=== PATIENT | female | born 1990 | race Caucasian/White ===

== ENCOUNTER 2018-03-12 20:40 | Emergency (ER) | payer BC ==
[~2018-03-12] VITALS: Ht 177.8 cm; Wt 90.9 kg
[2018-03-12 21:00] VITALS: Ht 177.8 cm; Wt 90.9 kg
[2018-03-12] MEDS ORDERED: ABILIFY10 MG PO (21:01)
[2018-03-12] MEDS ORDERED: EFFEXOR100 MG PO (21:01)
[2018-03-12] MEDS ORDERED: ZYRTEC10 MG PO (21:02)
[2018-03-12 21:30] LABS: BASOPHILS 0 % (0-2); EOSINOPHILS 0 % (0-7); HEMATOCRIT 38.2 % (36.0-48.0); HEMOGLOBIN 12.7 g/dL (12-16); IMMATURE GRANULOCYTES 0.3 % (0-5); LYMPHOCYTES 19.3 % (15-50); MCH 29.6 pg (26.0-34.0); MCHC 33.2 g/dL (31.0-37.0); MEAN PLATELET VOLUME 10.6 fL (7.4-10.4); MONOCYTES 10.6 % (2-11); NEUTROPHILS 69.8 % (40-80); PLATELET COUNT 225 10x3/uL (130-400); RBC 4.29 10x6/uL (4.00-5.40); RDW 13.3 % (11.5-14.5); WBC 6.4 10x3/uL (4.8-10.8)
[2018-03-12 21:33] LABS: COLOR AMBER (YELLOW)
[2018-03-12 21:34] LABS: APPEARANCE HAZY (CLEAR); BILIRUBIN NEGATIVE (NEGATIVE); GLUCOSE NEGATIVE (NEGATIVE); KETONE NEGATIVE (NEGATIVE); NITRITE NEGATIVE (NEGATIVE); PROTEIN 1+ mg/dL (NEGATIVE); SPECIFIC GRAVITY 1.015 (1.005-1.020); UROBILINOGEN NORMAL (NORMAL)
[2018-03-12 21:36] LABS: WHITE CELLS - URINE 0-5 /hpf (0-5)
[2018-03-12 21:37] LABS: HCG SERUM NEGATIVE (NEGATIVE)
[2018-03-12 21:44] LABS: BACTERIA FEW /hpf (NONE SEEN)
[2018-03-12 21:46] LABS: HCG URINE NEGATIVE (NEGATIVE)
[2018-03-12 22:21] LABS: ALBUMIN 3.3 g/dL (3.4-5.0); ALKALINE PHOSPHATASE 115 U/L (46-116); ALT (SGPT) 40 U/L (10-68); CALC OSMOLALITY 278 mosm/kg (275-300); CALCIUM 8.9 mg/dL (8.5-10.1); CARBON DIOXIDE 23.8 mmol/L (21.0-32.0); CHLORIDE - SERUM 107 mmol/L (98-107); CREATININE - SERUM 0.8 mg/dL (0.6-1.3); GLUCOSE 99 mg/dL (74-106); HCG - QUANTITATIVE (MATERNAL) 3 mIU/mL; POTASSIUM - SERUM 3.5 mmol/L (3.5-5.1); PROTEIN - SERUM 6.9 g/dL (6.4-8.2); SODIUM 141 mmol/L (136-145); UREA NITROGEN 8 mg/dL (7-18); eGFR NON AFRICAN AMERICAN 89 mL/min (90-120)
[2018-03-12] MEDS ORDERED: ROBAXIN500 MG PO (22:33)
[2018-03-12 22:53] VITALS: BP 142/80
== END 2018-03-12 22:54 | disposition home or self-care (01) ==
LOC: D.ER 20:40
PROVIDERS: Family Medicine
DX: O03.9 Complete or unspecified spontaneous abortion without complication (principal); R10.2 Pelvic and perineal pain

== ENCOUNTER 2018-05-01 05:22 | Emergency (ER) | payer BC ==
[~2018-05-01] VITALS: Ht 177.8 cm; Wt 95.5 kg
[~2018-05-01 05:22] MED LIST: ABILIFY10 MG PO; EFFEXOR100 MG PO; ROBAXIN500 MG PO; ZYRTEC10 MG PO
[2018-05-01 05:28] VITALS: Ht 177.8 cm; Wt 95.5 kg
[2018-05-01] MEDS ORDERED: NORCO 7.5/325 T1 TA1 PO (08:16)
[2018-05-01 08:37] VITALS: BP 132/87
== END 2018-05-01 08:37 | disposition home or self-care (01) ==
LOC: D.ER 05:22
DX: S93.402A Sprain of unspecified ligament of left ankle, initial encounter (principal); W10.9XXA Fall (on) (from) unspecified stairs and steps, initial encounter; Y93.89 Activity, other specified; Y92.019 Unspecified place in single-family (private) house as the place of occurrence of the external cause; S93.602A Unspecified sprain of left foot, initial encounter; F17.200 Nicotine dependence, unspecified, uncomplicated

== ENCOUNTER 2018-07-04 07:20 | Emergency (ER) | payer BC ==
[~2018-07-04] VITALS: Ht 177.8 cm; Wt 99.8 kg
[~2018-07-04 07:20] MED LIST changes: +NORCO 7.5/325 T1 TA1 PO
[2018-07-04 07:30] VITALS: Ht 177.8 cm; Wt 99.8 kg
[2018-07-04 08:00] LABS: COLOR YELLOW (YELLOW)
[2018-07-04 08:01] LABS: APPEARANCE HAZY (CLEAR); BILIRUBIN NEGATIVE (NEGATIVE); GLUCOSE NEGATIVE (NEGATIVE); KETONE MODERATE mg/dL (NEGATIVE); NITRITE NEGATIVE (NEGATIVE); PROTEIN NEGATIVE (NEGATIVE); SPECIFIC GRAVITY 1.025 (1.005-1.020)
[2018-07-04 08:02] LABS: BACTERIA MODERATE /hpf (NONE SEEN); EPITHELIAL CELLS OCC /hpf (0-5); MUCUS <1+ /lpf (NONE SEEN); RED CELLS - URINE OCC /hpf (0-5); WHITE CELLS - URINE 0-5 /hpf (0-5)
[2018-07-04 08:42] LABS: BASOPHILS 0 % (0-2); EOSINOPHILS 0 % (0-7); IMMATURE GRANULOCYTES 0.3 % (0-5); LYMPHOCYTES 7.8 % (15-50); MCH 29.3 pg (26.0-34.0); MCHC 33.3 g/dL (31.0-37.0); MCV 87.8 fL (80.0-100.0); MEAN PLATELET VOLUME 11.6 fL (7.4-10.4); MONOCYTES 6.5 % (2-11); NEUTROPHILS 85.4 % (40-80); PLATELET COUNT 217 10x3/uL (130-400); RDW 13.5 % (11.5-14.5); WBC 7.1 10x3/uL (4.8-10.8)
[2018-07-04 08:53] LABS: ALBUMIN 3.3 g/dL (3.4-5.0); ALKALINE PHOSPHATASE 92 U/L (46-116); ALT (SGPT) 18 U/L (10-68); BILIRUBIN - TOTAL 0.34 mg/dL (0.2-1.3); CALC OSMOLALITY 272 mosm/kg (275-300); CALCIUM 8.6 mg/dL (8.5-10.1); CARBON DIOXIDE 21.1 mmol/L (21.0-32.0); CHLORIDE - SERUM 104 mmol/L (98-107); CREATININE - SERUM 0.6 mg/dL (0.6-1.3); GLUCOSE 96 mg/dL (74-106); POTASSIUM - SERUM 3.3 mmol/L (3.5-5.1); SODIUM 137 mmol/L (136-145); UREA NITROGEN 11 mg/dL (7-18); eGFR NON AFRICAN AMERICAN > 90 mL/min (90-120)
[2018-07-04 09:18] LABS: HCG - QUANTITATIVE (MATERNAL) 62090 mIU/mL
[2018-07-04] MEDS ORDERED: MECLIZINE HCL25 MG PO (09:54)
[2018-07-04] MEDS ORDERED: KEFLEX500 MG PO (09:54)
[2018-07-04] MEDS ORDERED: MACROBID100 MG PO (09:54)
[2018-07-04 10:40] VITALS: BP 109/62
== END 2018-07-04 10:40 | disposition home or self-care (01) ==
LOC: D.ER 07:20
PROVIDERS: Family Medicine
DX: O23.41 Unspecified infection of urinary tract in pregnancy, first trimester (principal); Z3A.01 Less than 8 weeks gestation of pregnancy; O21.0 Mild hyperemesis gravidarum

== ENCOUNTER → 2018-12-16 04:20 | Outpatient (CLI) | payer BC ==
[~2018-12-16 04:20] MED LIST changes: +ABILIFY2 MG PO; +EFFEXOR XR150 MG PO; +EFFEXOR75 MG; +FERROUS SULFAT325 MG PO; +KEFLEX500 MG PO; +MACROBID100 MG PO; +MECLIZINE HCL25 MG PO; +PEPCID AC20 MG PO; +PRENAVITE1 TAB PO
== END | disposition home or self-care (01) ==
LOC: D.LDO 04:20
PROVIDERS: ATTEND Obstetrics & Gynecology
DX: O26.899 Other specified pregnancy related conditions, unspecified trimester (principal)

== ENCOUNTER → 2018-12-19 07:35 | Outpatient (CLI) | payer BC | END | disposition home or self-care (01) | LOC: D.LDO 07:35 | PROVIDERS: ATTEND Obstetrics & Gynecology | DX: O26.893 Other specified pregnancy related conditions, third trimester (principal); Z3A.34 34 weeks gestation of pregnancy; R06.02 Shortness of breath ==

== ENCOUNTER → 2018-12-23 01:21 | Outpatient (CLI) | payer BC | END | disposition home or self-care (01) | LOC: D.LDO 01:21 | PROVIDERS: ATTEND Obstetrics & Gynecology | DX: O26.893 Other specified pregnancy related conditions, third trimester (principal); Z3A.35 35 weeks gestation of pregnancy ==

== ENCOUNTER → 2018-12-27 09:37 | Outpatient (CLI) | payer BC ==
[2018-12-27 11:35] LABS: BASOPHILS 0 % (0-2); EOSINOPHILS 0.1 % (0-7); HEMATOCRIT 27.9 % (36.0-48.0); HEMOGLOBIN 9.3 g/dL (12-16); IMMATURE GRANULOCYTES 0.7 % (0-5); LYMPHOCYTES 17.1 % (15-50); MCH 28.4 pg (26.0-34.0); MCHC 33.3 g/dL (31.0-37.0); MCV 85.3 fL (80.0-100.0); MEAN PLATELET VOLUME 10.6 fL (7.4-10.4); MONOCYTES 9.7 % (2-11); NEUTROPHILS 72.4 % (40-80); RBC 3.27 10x6/uL (4.00-5.40); RDW 14.7 % (11.5-14.5); WBC 6.9 10x3/uL (4.8-10.8)
[2018-12-27 11:37] LABS: PLATELET COUNT 168 10x3/uL (130-400)
[2018-12-27 11:39] LABS: APPEARANCE CLEAR (CLEAR); BILIRUBIN NEGATIVE (NEGATIVE); COLOR YELLOW (YELLOW); GLUCOSE NEGATIVE (NEGATIVE); KETONE NEGATIVE (NEGATIVE); NITRITE NEGATIVE (NEGATIVE); PROTEIN TRACE mg/dL (NEGATIVE); UROBILINOGEN NORMAL (NORMAL)
[2018-12-27 11:43] LABS: BACTERIA FEW /hpf (NONE SEEN); MUCUS <1+ /lpf (NONE SEEN); RED CELLS - URINE NONE SEEN /hpf (0-5)
[2018-12-27 11:44] LABS: CALCIUM OXALATE CRYSTALS 0-5 /hpf (NONE SEEN)
[2018-12-27 11:51] LABS: ALBUMIN 2.4 g/dL (3.4-5.0); ALKALINE PHOSPHATASE 159 U/L (46-116); ALT (SGPT) 17 U/L (10-68); BILIRUBIN - DIRECT 0.05 mg/dL (0.00-0.30); BILIRUBIN - TOTAL 0.25 mg/dL (0.2-1.3); CALC OSMOLALITY 274 mosm/kg (275-300); CALCIUM 8.5 mg/dL (8.5-10.1); CARBON DIOXIDE 23.5 mmol/L (21.0-32.0); CHLORIDE - SERUM 105 mmol/L (98-107); CREATININE - SERUM 0.5 mg/dL (0.6-1.3); GLUCOSE 78 mg/dL (74-106); PROTEIN - SERUM 5.9 g/dL (6.4-8.2); SODIUM 140 mmol/L (136-145); UREA NITROGEN 3 mg/dL (7-18); URIC ACID 4.8 mg/dL (2.6-7.2); eGFR NON AFRICAN AMERICAN > 90 mL/min (90-120)
[2018-12-27 11:52] LABS: POTASSIUM - SERUM 2.7 mmol/L (3.5-5.1)
== END | disposition home or self-care (01) ==
LOC: D.LDO 09:37
PROVIDERS: ATTEND Obstetrics & Gynecology
DX: O36.8130 Decreased fetal movements, third trimester, not applicable or unspecified (principal); Z3A.35 35 weeks gestation of pregnancy

== ENCOUNTER → 2019-01-03 08:30 | Outpatient (CLI) | payer BC ==
[2019-01-03 09:47] LABS: BASOPHILS 0 % (0-2); EOSINOPHILS 0 % (0-7); HEMATOCRIT 28.2 % (36.0-48.0); HEMOGLOBIN 9.5 g/dL (12-16); IMMATURE GRANULOCYTES 0.7 % (0-5); LYMPHOCYTES 13.6 % (15-50); MCH 28.4 pg (26.0-34.0); MCHC 33.7 g/dL (31.0-37.0); MCV 84.2 fL (80.0-100.0); NEUTROPHILS 75.7 % (40-80); PLATELET COUNT 156 10x3/uL (130-400); RBC 3.35 10x6/uL (4.00-5.40); RDW 14.4 % (11.5-14.5); WBC 6.9 10x3/uL (4.8-10.8)
[2019-01-03 10:00] LABS: ALBUMIN 2.4 g/dL (3.4-5.0); ALKALINE PHOSPHATASE 161 U/L (46-116); ALT (SGPT) 19 U/L (10-68); BILIRUBIN - DIRECT 0.09 mg/dL (0.00-0.30); BILIRUBIN - INDIRECT 0.17 mg/dL (0.00-1.00); BILIRUBIN - TOTAL 0.26 mg/dL (0.2-1.3); CALC OSMOLALITY 275 mosm/kg (275-300); CALCIUM 8.7 mg/dL (8.5-10.1); CHLORIDE - SERUM 104 mmol/L (98-107); CREATININE - SERUM 0.6 mg/dL (0.6-1.3); GLUCOSE 83 mg/dL (74-106); SODIUM 140 mmol/L (136-145); UREA NITROGEN 6 mg/dL (7-18); URIC ACID 4.2 mg/dL (2.6-7.2); eGFR NON AFRICAN AMERICAN > 90 mL/min (90-120)
[2019-01-03 10:02] LABS: POTASSIUM - SERUM 2.8 mmol/L (3.5-5.1)
[2019-01-04 09:00] LABS: PROTEIN - URINE 18.2 mg/dL (0.0-11.9)
[2019-01-10 13:01] VITALS: BMI 35.8
== END | disposition home or self-care (01) ==
LOC: D.LDO 08:30
PROVIDERS: ATTEND Obstetrics & Gynecology
DX: O26.893 Other specified pregnancy related conditions, third trimester (principal); Z3A.36 36 weeks gestation of pregnancy

== ENCOUNTER → 2019-01-06 09:27 | Outpatient (CLI) | payer BC ==
[~2019-01-06 09:27] MED LIST changes: +EFFEXOR XR75 MG PO; -EFFEXOR75 MG
[2019-01-10 13:01] VITALS: BMI 35.8
== END | disposition home or self-care (01) ==
LOC: D.LDO 09:27
PROVIDERS: ATTEND Obstetrics & Gynecology
DX: O13.3 Gestational [pregnancy-induced] hypertension without significant proteinuria, third trimester (principal); Z3A.37 37 weeks gestation of pregnancy

== ENCOUNTER 2019-01-07 22:40 | Outpatient (CLI) | payer BC ==
[~2019-01-07 22:40] MED LIST changes: -EFFEXOR XR75 MG PO; +EFFEXOR75 MG
[2019-01-10 13:01] VITALS: BMI 35.8
== END 2019-01-07 23:40 | disposition home or self-care (01) ==
LOC: D.LABREF 22:40 → D.LD 22:41 → D.LABREF 23:40
PROVIDERS: ATTEND Obstetrics & Gynecology
DX: O16.3 Unspecified maternal hypertension, third trimester (principal); Z3A.37 37 weeks gestation of pregnancy

== ENCOUNTER 2019-01-10 09:45 | Inpatient (IN) | payer BC ==
[~2019-01-10] VITALS: Ht 177.8 cm; Wt 112.9 kg
[~2019-01-10 09:45] MED LIST changes: +EFFEXOR XR75 MG PO; -EFFEXOR75 MG
[2019-01-10 10:45] LABS: HEMATOCRIT 27.3 % (36.0-48.0); HEMOGLOBIN 9.1 g/dL (12-16); MCH 27.8 pg (26.0-34.0); MCHC 33.3 g/dL (31.0-37.0); MCV 83.5 fL (80.0-100.0); MEAN PLATELET VOLUME 10.6 fL (7.4-10.4); RBC 3.27 10x6/uL (4.00-5.40); WBC 6.7 10x3/uL (4.8-10.8)
[2019-01-10 11:04] LABS: ALBUMIN 2.3 g/dL (3.4-5.0); ALKALINE PHOSPHATASE 165 U/L (46-116); ALT (SGPT) 17 U/L (10-68); BILIRUBIN - INDIRECT 0.22 mg/dL (0.00-1.00); BILIRUBIN - TOTAL 0.25 mg/dL (0.2-1.3); CALC OSMOLALITY 274 mosm/kg (275-300); CARBON DIOXIDE 23.5 mmol/L (21.0-32.0); CHLORIDE - SERUM 105 mmol/L (98-107); CREATININE - SERUM 0.6 mg/dL (0.6-1.3); GLUCOSE 100 mg/dL (74-106); PROTEIN - SERUM 5.8 g/dL (6.4-8.2); SODIUM 139 mmol/L (136-145); UREA NITROGEN 3 mg/dL (7-18); URIC ACID 4.1 mg/dL (2.6-7.2); eGFR NON AFRICAN AMERICAN > 90 mL/min (90-120)
[2019-01-10 11:07] LABS: BILIRUBIN - DIRECT 0.03 mg/dL (0.00-0.30); POTASSIUM - SERUM 2.8 mmol/L (3.5-5.1)
[2019-01-10 13:01] VITALS: BP 137/81; Ht 177.8 cm; Wt 112.9 kg
[2019-01-11] VITALS (13 sets, daily range): BP systolic 124–150; BP diastolic 63–94
[2019-01-11 07:14] LABS: RAPID PLASMA REAGIN Non Reactive (Non Reactive)
--- NOTE | 2019-01-11 08:45 | NUR ---
received pt from post primary c/s by dr. obrien. pt to room 1274, pt has low transverse incisin, dermabond noted. c/d/i. fundus firm, u/1, small rubra lochia, no clots noted, ice pack placed over gown to incision. scd's on. greco cath in place draining light yellow urine. 500 ml's urine noted in greco bag. pt denies sob, dizziness, or difficulty breathing. pt served large glass of ice water as she also denies nausea. see flow sheet for full documentation of assessment. see emar for all meds adm by this rn. family called to room. sr up x2, call light and phone within reach.
--- NOTE | 2019-01-11 08:48 | OP ---
PATIENT NAME: CELI WALKER MEDICAL RECORD: [id number] :86 LOCATION:[id number] ADMISSION DATE:01/10/19 SURGEON: RUSLAN IBRAHIM MD DATE OF OPERATION: 01/11/2019 PREOPERATIVE DIAGNOSES: 1. Preeclampsia. 2. at 35 and 5. POSTOPERATIVE DIAGNOSES: 1. Preeclampsia. 2. at 35 and 5. PROCEDURE: Primary low transverse section. SURGEON: Ruslan Ibrahim MD WELDING MACHINE OPERATOR ELECTROSLAG: Elham Crisostomo ANESTHESIOLOGIST: Garry Herrera MD ANESTHETIC: Spinal. FINDINGS: Viable female infant, vertex presentation, Apgars are 9 and 9, weight is 3557 grams. Unremarkable uterus, tubes and ovaries. SPECIMEN REMOVED: Placenta. SPECIMEN DISPOSITION: Discarded. ESTIMATED BLOOD LOSS: 700 cc. FLUIDS: 2100 cc of lactated Ringer's. URINE OUTPUT: 400 cc of clear urine. COMPLICATIONS: None. DRAINS: Fitzgerald to gravity. INDICATIONS: The patient is a 29-year-old G1, para 0 with preeclampsia. The patient has been hospitalized for 24 hours before section available to be done. The patient is not complaining of headaches or blurred vision at this time. The pressures are consistently borderline severe. After counseling, the patient has a strong desire for primary section and understands the risk, benefits and limitations of this procedure. The patient understood all risks and wishes to proceed. DESCRIPTION OF PROCEDURE: After informed consent was assured, the patient was taken to the operating room where anesthetic was obtained without difficulty. The patient was now prepped and draped in the usual sterile fashion. After assessment of the anesthetic, an incision was made, carried down to the underlying layer of the fascia, which was opened in the midline and extended laterally. The rectus bellies were dissected free, superiorly and inferiorly. The rectus bellies were now in the midline and the peritoneum was OPERATIVE REPORT [id number] CELI WALKER entered sharply. Peritoneal opening was extended and an Flash O retractor inserted and tightened. The Paris all-purpose retractor was inserted and bladder flap developed. A low transverse hysterotomy was performed. was delivered onto the abdomen with vacuum assist. The cord was noted, it was nuchal and reduced. Cord was doubly clamped and cut and the infant was passed to the attendant. Placenta was delivered via Crede maneuver. The uterus was exteriorized, cleared of all clot and debris. After Pitocin given, the uterus was still boggy and Hemabate was placed directly at both the right and left cornual regions with a tuberculin syringe. Hysterotomy was closed with a running stitch of chromic. Adequate hemostasis was achieved as the uterus was returned to the abdomen. The pelvis was irrigated, irrigant removed. The rectus bellies were reapproximated in the midline with a loose chromic stitch. The fascia was closed with running PDS. The subcutaneous tissue was inspected. Bleeding vessels cauterized and the skin reapproximated with 3-0 Monocryl on a Ismael needle. Sterile dressing applied. Sponge, lap, and needle counts correct times 2. The patient was recovered in the operating room, humidity was in excess of 61% throughout the procedure. TRANSINT:[id number] Voice Confirmation ID: [id number] DOCUMENT ID: [id number] RUSLAN IBRAHIM MD at 0848 CC: [id number] DICTATION DATE: 01/11/19827 PUBLIC SAFETY OFFICER: 01/11/19 0840 ADM IN [facility] [address] [id number]
--- NOTE | 2019-01-11 09:00 | NUR ---
fundus firm, u/2, small rubra lochia, no clots noted. pt denies pain or needs at this time. srup x2, call light and phone within reach.
--- NOTE | 2019-01-11 14:15 | NUR ---
to pt's room, pt is sitting up in the bed. fundus firm, u/1, small rubra lochia, no clots noted. pericare done with warm wet washcloths, peritowels/chux changed. greco cath continues to drain clear yellow urine, 1700 ml's emptied out of greco bag. abdomen palpates soft, no bladder distention palpated. pt instructed on incentive spirometer use, demonstrates well x 2, and coughing and deep breathing exercises done well. pt denies all other needs at this time. plan of care to normalize pt later this evening discussed with pt and pt agrees. sr up x2, call light and phone within reach. family at bedside.
--- NOTE | 2019-01-11 19:15 | NUR ---
REPORT GIVEN TO 7 P SHIFT.
--- NOTE | 2019-01-11 19:30 | NUR ---
PM ROUNDS MADE, PT VISITING WITH FAMILY AND FRIENDS, HOLDING , INFORMED PT THAT I WILL BE BACK SHORTLY TO REMOVE BROWN CATH AND TRANSFER HER TO ROOM 1257, PT VERBALIZES UNDERSTANDING, DENIES NEEDS AT THIS TIME
--- NOTE | 2019-01-11 20:10 | NUR ---
ASSESSMENT PER FLOW SHEET, VS OBTAINED, IF IN LEFT HAND INTACT WITH NO REDNESS OR EDEMA INFUSING NS WITH PITOCIN AT 125 ML/HR, FF, ML, U/1, LITE BLEEDING NOTED WITH NO CLOTS, BIKINI INC WITH DERMABOND CDI WITH NO DRAINAGE NOTED, BROWN CATH REMOVED, TIP INTACT, EMPTIED 600 MLS OF YELLOW URINE, JOSELO CARE DONE WITH WET WARM WASH CLOTHS, PT STATES "I THINK I COULD GO AGAIN", PT UP TO BR WITH ASSISTANCE, GAIT STEADY, PT DID NOT NOT, ASSISTED PT WITH JOSELO PAD AND PANTIES, PT DENIES FLATUS, PT READY TO TRANSFER TO ROOM 1257, FOB TAKES ALL BELONGINGS TO ROOM 1257
--- NOTE | 2019-01-11 20:45 | NUR ---
PT TRANSFERRED VIA WC TO ROOM 1257, PT ORIENTED TO ROOM, INFORMED PT THAT I WILL BE BACK IN A FEW MINUTES TO HANG HER OTHER KCL, PT VERBALIZES UNDERSTANDING, BED IN LOW POSITION, SIDE RAILS X 2, CALL LIGHT IN REACH
--- NOTE | 2019-01-11 20:59 | NUR ---
THIRD BAG OF KCL HUNG PER MD ORDERS, SEE EMAR
--- NOTE | 2019-01-11 21:35 | NUR ---
PT WATCHING TV, DENIES NEEDS AT THIS TIME, FOB AT BEDSIDE
--- NOTE | 2019-01-11 22:21 | NUR ---
ADM TORADOL PO AND HUNG 4TH BAG OF KCL PER MD ORDERS, SEE EMAR, PT DENIES FURTHER NEEDS, BED IN LOW POSITION, SIDE RAILS X 2, CALL LIGHT IN REACH, FOB AT BEDSIDE
--- NOTE | 2019-01-12 00:04 | NUR ---
PT BORDER MEASURER LIGHT, C/O PAIN, ADM PERCOCET PER MD ORDERS, PT REPORTS VOIDING, EMPTIED 500 MLS OF LIGHTLY BLOOD TINGED URINE FROM UTAH HAT, PT DENIES FURTHER NEEDS, FOB AT BEDSIDE
[2019-01-12 00:37] VITALS: BP 151/83
--- NOTE | 2019-01-12 01:00 | NUR ---
PT SALESPERSON PETS AND PET SUPPLIES LIGHT, IV BEEPING, IV CONVERTED SL, FLUSHED WITH 10 MLS NS WITH NO DIFFICULTY, RATES PAIN 1-2. PLACED BABY IN OPEN CRIB. PT DENIES FURTHER NEEDS AT THIS TIME. FOB AT THE BEDSIDE. BED LOW, CALL LIGHT IN REACH, RAILS UP X 2.
--- NOTE | 2019-01-12 02:25 | NUR ---
PT RESTING WITH EYES CLOSED, RESP QUIET, NO DISTRESS NOTED, LEFT UNDISTURBED AT THIS TIME, IN OPEN CRIB CART AT BEDSIDE, FOB ASLEEP ON COUCH
--- NOTE | 2019-01-12 04:44 | NUR ---
PT RESTING IN BED, BABY IN OPEN CRIB AT BEDSIDE. VITALS TAKEN. PT REPORTS PAIN 3/, ADMINISTERED TORADOL PER DRS ORDERS. EMPTIED 600ML OF LIGHTLY BLOOD TINGED URINE OUT OF TOILET CAP. PT DENIES ANY FURTHER NEEDS AT THIS TIME.
[2019-01-12 04:48] VITALS: BP 132/82
--- NOTE | 2019-01-12 05:36 | NUR ---
PT RESTING WITH EYES CLOSED, RESP QUIET, NO DISTRESS NOTED, LEFT UNDISTURBED AT THIS TIME, IN OPEN CRIB CART AND FOB ASLEEP ON COUCH
--- NOTE | 2019-01-12 06:05 | NUR ---
PT AWAKE, INFANT TO NSY FOR BS CHECK, BACK TO ROOM, BANDS CHECKED, PT C/O PAIN, ADM PAIN MED PER MD ORDERS, SEE EMAR, PT DENIES FURTHER NEEDS
--- NOTE | 2019-01-12 08:20 | NUR ---
PT CALLS OUT PAINT ROLLER ASSEMBLER LIGHT AND STATES "WHEN I GOT UP TO THE BATHROOM, PART OF MY IV FELL OFF". TO PT'S ROOM, 3 WAY PORT OFF OF SL NOTED TO BE ON THE FLOOR. NO ACTIVE BLEEDING NOTED FROM IV SITE, IV CATH REMAINS INTACT TO LEFT HAND. IV CATH DC'D INTACT. PT TOBI WELL. PT HAS VOIDED 200 ML'S LIGHT YELLOW URINE.
--- NOTE | 2019-01-12 08:30 | NUR ---
TO ROOM FOR AM ASSESMENT, PT IS SITTING UP ON THE SIDE OF THE BED. PT REQUESTS TO TAKE A SHOWER, CLEAN LINENS PROVIDED, ALONG WITH PERIPANTIES/PADS, AND BODY WASH. BED LINENS CHANGED. FRESH ICE PACK PROVIDED. LARGE FRESH ICE WATER SERVED. PT DENIES SOB, NAUSEA, DIZZINESS, OR DIFFICULTY BREATHING. PT DENIES HEAVY BLEEDING OR PASSING CLOTS. REGULAR BREAKFAST TRAY IS ON BEDSIDE TABLE. PT DENIES ALL OTHER NEEDS. SR UP X2, CALL LIGHT AND PHONE WITHIN REACH.
--- NOTE | 2019-01-12 08:45 | NUR ---
BIKINI LINE INCISION NOTED TO HAVE DERMABOND, C/D/I, NO BRUISING OR REDNESS NOTED TO INCISIONAL AREA. UP TO SHOWER, CALL LIGHT WITHIN REACH. PT DENIES ALL NEEDS.
[2019-01-12 08:47] VITALS: BP 141/81
--- NOTE | 2019-01-12 09:15 | NUR ---
DR. IBRAHIM ON UNIT, TO ROOM FOR AM ROUNDS.
--- NOTE | 2019-01-12 12:10 | NUR ---
pt calls out framing consultant light and requests pain medication, but states she does not want both of them together. states she wants to take toradol now, and wants to take the percocet later. ice water served, fresh ice pack provided to pt. pt denies all other needs. srup x2, call light and phone within reach.
[2019-01-12 12:30] VITALS: BP 132/77
--- NOTE | 2019-01-12 14:22 | NUR ---
REQUESTING PAIN MEDICATION- RATES PAIN A 6 ON SCALE OF 0-10. STATES PAIN IS AT INCISION AREA.
--- NOTE | 2019-01-12 15:08 | NUR ---
SITTING UP IN BED TALKING WITH VISITOR. IN ARMS. NO REQUESTS.
[2019-01-12 16:13] VITALS: BP 140/82
--- NOTE | 2019-01-12 16:14 | NUR ---
SITTING UP IN BED HOLDING . DENIES NEEDS.
--- NOTE | 2019-01-12 17:56 | NUR ---
ASLEEP WHEN ENTERED ROOM. ASK ABOUT PAIN- STATES ABOUT 4 ON SCALE OF 0-10. DENIES NEEDS.
--- NOTE | 2019-01-12 19:12 | NUR ---
PT VISITING WITH CO-WORKER, CO-WORKER HOLDING , INFORMED PT THAT I WILL BE BACK SHORTLY TO DO ASSESSMENT, PT REPORTS ONLY HAVE PAIN WITH MOVEMENT WHEN GETTING UP, REQUESTS PAIN MED AND JOSELO PADS, INFORMED PT THAT I WILL BRING THOSE WITH ME WHEN I RETURN, PT VERBALIZES UNDERSTANDING, DENIES FURTHER NEEDS
[2019-01-12 20:25] VITALS: BP 138/88
--- NOTE | 2019-01-12 20:25 | NUR ---
ASSESSMENT PER FLOW SHEET, VS OBTAINED, FF, ML, U/2, PT REPORTS LITE BLEEDING WITH 1 STRINGY CLOT EARLIER TODAY, BIKINI INC WITH DB AND STERI STRIPS CDI WITH NO DRAINAGE NOTED, JOSELO PAD OVER INC FOR COMFORT AND MOISTURE CONTROL, PT INST ON AND VERBALIZES UNDERSTANDING OF INCISIONAL CARE, ADM PAIN MED PER MD ORDERS FOR PAIN CONTROL, SEE EMAR, PT DENIES FURTHER NEEDS AT THIS TIME, BED IN LOW POSITION, SIDE RAILS X 2, CALL LIGHT IN REACH, TO PT'S ARMS, FOB AT BEDSIDE
--- NOTE | 2019-01-12 21:20 | NUR ---
PT SITTING UP ON SIDE OF BED, RATES PAIN 1-2/10, REQUESTED AND SERVED FRESH H20, INFANT IN OPEN CRIB CART AND FOB AT BEDSIDE, DENIES FURTHER NEEDS, TRASH REMOVED
--- NOTE | 2019-01-12 22:32 | NUR ---
PT GETTING UP TO BR, GAIT STEADY, INFORMED PT THAT I WILL BRING HER TORADOL AT MIDNIGHT, PT VERBALIZES UNDERSTANDING, DENIES NEEDS AT THIS TIME, IN OPEN CRIB CART
--- NOTE | 2019-01-13 00:27 | NUR ---
PT AWAKE, HOLDING INFANT, ADM TORADOL AND PERCOCET PER MD ORDERS, SEE EMAR, PT DENIES FURTHER NEEDS, FOB ASLEEP ON COUCH
--- NOTE | 2019-01-13 02:22 | NUR ---
PT AWAKE, HOLDING INFANT, DENIES NEEDS AT THIS TIME, INFORMED PT THAT I WILL COME BACK IN AROUND 4:30 TO OBTAIN VS AND BRING PAIN MED AT THAT TIME, PT STATES "THAT SOUNDS GOOD"
[2019-01-13 04:29] VITALS: BP 121/64
--- NOTE | 2019-01-13 04:29 | NUR ---
PT AROUSES TO OPENING OF DOOR, VS OBTAINED, ADM PERCOCET PER MD ORDERS, SEE EMAR, WITH FRESH H20, PT DENIES FURTHER NEEDS, IN OPEN CRIB CART AND FOB ASLEEP ON COUCH
--- NOTE | 2019-01-13 06:23 | NUR ---
DR IBRAHIM TO ROOM
--- NOTE | 2019-01-13 06:41 | NUR ---
PT AWAKE, INFANT IN OPEN CRIB CART, ADM TORADOL PER MD ORDERS, SEE EMAR, PT DENIES FURTHER NEEDS
--- NOTE | 2019-01-13 07:00 | NUR ---
SHIFT REPORT TO JESSICA MORRIS RN
--- NOTE | 2019-01-13 07:15 | NUR ---
UP AND ABOUT IN ROOM. INTO BED FOR VS AND ASSESSMENT. ALERT- VERBAL RESPONSES APPRO TO QUESTIONS. STATES TIRED AND DID NOT SLEEP MUCH LAST NIGHT- STATES BABY WAS AWAKE. ABD INCISION APPEARANCE WNL- DERMABOND. ICE WATER GIVEN. DENIES OTHER NEEDS.
[2019-01-13 07:28] VITALS: BP 140/88
--- NOTE | 2019-01-13 09:03 | NUR ---
RINGS CALL LIGHT- REQUESTING PAIN MEDICATION. STATES PAIN IS AT INCISION AREA- RATING PAIN A 6 ON SCALE OF 0-10.
[2019-01-13 09:10] VITALS: BP 120/72
[2019-01-13] MEDS ORDERED: IBUPROFEN800 MG PO (10:07)
[2019-01-13] MEDS ORDERED: PERCOCET 7.5/321 TAB PO (10:07)
--- NOTE | 2019-01-13 11:04 | NUR ---
DISCHARGE INST VERBAL AND WRITTEN GIVEN. PRESCRIPTIONS GIVEN X 2 WITH PT MED REC AND DRUG DATA INFO SHEETS. PFW DISCHARGE INST GIVEN. AWHONN EMERGENCY SHEET GIVEN. SEE PT SIGN SHEET FOR OTHER DISCHARGE INST. PT HEALTH SUMMARY GIVEN. DENIES QUESTIONS AT THIS TIME. PT STATES SHE IS READY FOR DISCHARGE ONCE BABY IS DISCHARGED.
--- NOTE | 2019-01-13 12:39 | NUR ---
AMBULATORY TO DESK. REQUESTING PAIN MEDICATION BEFORE DISCHARGE.RATES PAIN A 6 ON SCALE OF 0-10. PAIN AT INCISION AREA.
--- NOTE | 2019-01-13 14:00 | NUR ---
PT STATES SHE IS READY FOR DISCHARGE. FAMILY AT SIDE. DISCHARGED HOME WITH . TO AUTO VIA W/C.
== END 2019-01-13 14:00 | disposition home or self-care (01) | DRG 788 ==
LOC: D.LD 09:45
PROVIDERS: ADMIT Obstetrics & Gynecology; ATTEND Obstetrics & Gynecology
PROC: 10D00Z1 Extraction of Products of Conception, Low, Open Approach (ICD-10-PCS; principal; 2019-01-11)
DX: O14.94 Unspecified pre-eclampsia, complicating childbirth (principal); Z3A.37 37 weeks gestation of pregnancy; Z37.0 Single live birth

== ENCOUNTER 2019-01-15 21:47 | Inpatient (IN) | payer BC ==
[~2019-01-15] VITALS: Ht 177.8 cm; Wt 101.4 kg
[~2019-01-15 21:47] MED LIST changes: +IBUPROFEN800 MG PO; +PERCOCET 7.5/321 TAB PO
[2019-01-15 22:00] VITALS: BP 166/109
[2019-01-15 22:15] VITALS: BP 162/95
[2019-01-15 22:30] VITALS: BP 146/104
[2019-01-15 22:45] LABS: BASOPHILS 0.1 % (0-2); EOSINOPHILS 0.1 % (0-7); HEMATOCRIT 26.3 % (36.0-48.0); HEMOGLOBIN 8.6 g/dL (12-16); IMMATURE GRANULOCYTES 0.8 % (0-5); LYMPHOCYTES 17.8 % (15-50); MCH 27.5 pg (26.0-34.0); MCHC 32.7 g/dL (31.0-37.0); MEAN PLATELET VOLUME 10.4 fL (7.4-10.4); MONOCYTES 8.8 % (2-11); NEUTROPHILS 72.4 % (40-80); RBC 3.13 10x6/uL (4.00-5.40); RDW 14.3 % (11.5-14.5); WBC 7.1 10x3/uL (4.8-10.8)
[2019-01-15 22:49] LABS: INR 1.03 (0.85-1.17); PLATELET COUNT 256 10x3/uL (130-400)
[2019-01-15 22:50] LABS: APTT 31.4 SECONDS (22.8-39.4)
[2019-01-15 23:00] VITALS: BP 152/109
[2019-01-15 23:15] LABS: ALBUMIN 2.2 g/dL (3.4-5.0); ALKALINE PHOSPHATASE 127 U/L (46-116); ALT (SGPT) 23 U/L (10-68); BILIRUBIN - TOTAL 0.21 mg/dL (0.2-1.3); CALC OSMOLALITY 277 mosm/kg (275-300); CALCIUM 8.3 mg/dL (8.5-10.1); CARBON DIOXIDE 23.3 mmol/L (21.0-32.0); CHLORIDE - SERUM 107 mmol/L (98-107); CKMB 1.8 U/L (0.0-3.6); CREATINE KINASE 103 UL (21-215); CREATININE - SERUM 0.7 mg/dL (0.6-1.3); GLUCOSE 101 mg/dL (74-106); PRO BNP 4108 pg/mL (0-125); PROTEIN - SERUM 5.9 g/dL (6.4-8.2); SODIUM 140 mmol/L (136-145); UREA NITROGEN 10 mg/dL (7-18); eGFR NON AFRICAN AMERICAN > 90 mL/min (90-120)
[2019-01-15 23:17] LABS: POTASSIUM - SERUM 2.8 mmol/L (3.5-5.1)
--- NOTE | 2019-01-16 00:05 | NUR ---
URINE TO THE LAB.
[2019-01-16 00:23] LABS: APPEARANCE CLEAR (CLEAR); BILIRUBIN NEGATIVE (NEGATIVE); COLOR YELLOW (YELLOW); GLUCOSE NEGATIVE (NEGATIVE); KETONE NEGATIVE (NEGATIVE); NITRITE NEGATIVE (NEGATIVE); PROTEIN 1+ mg/dL (NEGATIVE); UROBILINOGEN NORMAL (NORMAL)
[2019-01-16 00:25] LABS: BACTERIA FEW /hpf (NONE SEEN); EPITHELIAL CELLS 0-5 /hpf (0-5); RED CELLS - URINE 0-5 /hpf (0-5); WHITE CELLS - URINE 0-5 /hpf (0-5)
[2019-01-16 02:53] VITALS: BP 152/94; BMI 34.1
--- NOTE | 2019-01-16 03:02 | NUR ---
RECIEVED REPORT FROM MANUEL SANTILLAN IN ER. BROUGHT TO THE FLOOR ON STRETCHER. TRANSFERED SELF TO BED. ALERT AND ORIENTED X4. UP AD ELSY TO B/R. GENERALIZED EDEMA TO UPPER EXTREMITIES AND PITTING EDEMA TO LOWER EXTREMITIES. TELEMETRY IN PLACE AND RATE 125 SINUS TACH.. LUNG SOUNDS CRACKLES BILATERALLY. O2@4 LITERS PER N/C. IV TO LEFT FA SL AT THIS TIME. ABSX4. STATES HAS'NT HAD A BM SINCE LAST WEDNESDAY. HAD ON WEDNESDAY LAST WEEK. DENIES ANY NEEDS AT THIS TIME.
--- NOTE | 2019-01-16 07:50 | NUR ---
PT AWAKE AND ORIENTED, LYING IN BED. PT STATES NO DISCOMFORT/PAIN AT THIS TIME. NO QUESTIONS, CONCERNS, COMMENTS VOICED. SYLVAIN LOCKED I/V POST ANTIBIOTIC COMPLETION. CL IN REACH, SRX2.
[2019-01-16 08:03] VITALS: BP 143/90
[2019-01-16 11:41] VITALS: BP 158/85
[2019-01-16 12:43] VITALS: BMI 34.0
[2019-01-16 13:08] VITALS: Ht 177.8 cm; Wt 101.4 kg
[2019-01-16 13:45] LABS: HEMATOCRIT 25.2 % (36.0-48.0); HEMOGLOBIN 8.3 g/dL (12-16); MCH 27.8 pg (26.0-34.0); MCHC 32.9 g/dL (31.0-37.0); MCV 84.3 fL (80.0-100.0); MEAN PLATELET VOLUME 10.1 fL (7.4-10.4); PLATELET COUNT 246 10x3/uL (130-400); RBC 2.99 10x6/uL (4.00-5.40); RDW 14.2 % (11.5-14.5); WBC 8.8 10x3/uL (4.8-10.8)
[2019-01-16 14:01] LABS: BASOPHILS 0 % (0-2); EOSINOPHILS 0 % (0-7); IMMATURE GRANULOCYTES 1.7 % (0-5); LYMPHOCYTES 6.5 % (15-50); MONOCYTES 2.6 % (2-11); NEUTROPHILS 89.2 % (40-80)
[2019-01-16 14:18] LABS: % SATURATION 7 % (15-55); IRON 31 ug/dl (35-150); TOTAL IRON BIND CAPACITY 395 ug/dl (260-445); UNSAT IRON BIND CAPACITY 364 ug/dl (150-375)
[2019-01-16 14:46] LABS: CALC OSMOLALITY 284 mosm/kg (275-300); CALCIUM 8.3 mg/dL (8.5-10.1); CARBON DIOXIDE 26.3 mmol/L (21.0-32.0); CHLORIDE - SERUM 105 mmol/L (98-107); CREATININE - SERUM 0.8 mg/dL (0.6-1.3); FERRITIN 29 ng/mL (3-244); MAGNESIUM - SERUM 1.6 mg/dL (1.8-2.4); POTASSIUM - SERUM 3.1 mmol/L (3.5-5.1); SODIUM 142 mmol/L (136-145); THYROID STIMULATING HORMONE 0.27 uIU/mL (0.36-3.74); UREA NITROGEN 10 mg/dL (7-18); eGFR NON AFRICAN AMERICAN 89 mL/min (90-120)
[2019-01-16 14:47] LABS: GLUCOSE 158 mg/dL (74-106)
[2019-01-16 15:36] VITALS: BP 144/83
--- NOTE | 2019-01-16 17:37 | NUR ---
PT HAD HIT CL FOR HELP. I WAS BUSY IN ANOTHER ROOM, TECH ANSWERED AND SAID PTS IV WAS COMPLETE. IV WAS STILL RUNNING BACK UP SO I FINISHED WITH MY OTHER PT. WHEN I WAS DONE, PT HIT CL AGAIN, I WENT IN TTHERE BUT THE ANIMAL ASSISTED THERAPIST WAS IN AND SAID IT WAS JUST THE IV, WHICH SHE TURNED OFF. I UNHOOKED AND ORANGE CAPPED THE PT, AND LEFT THE ROOM SO THE ANIMAL ASSISTED THERAPIST COULD CONTINUE TO DISCUSS THE PTS CONDITION. PT DID NOT REQUEST PAIN MEDICATION. I WAS APPROACHED BY ICU TRANSMISSION AND PROTECTION ENGINEER DAVIS AND TOLD THE PT NEEDED PAIN MEDICATION. I INFORMED HER I WOULD GET SOME SHORLTY, THAT THE PT HAD NOT ASKED FOR ANY THE PREVIOUS TIME I WAS IN HER ROOM. BROUGHT PT HER PAIN MEDICATION WITHIN 10 MINUTES, AFTER COLLECTING THE REST OF THE PTS MEDICATIONS. PT STATED SHE HAS NO FURTHER NEEDS AT THIS TIME AND THAT SHE HAD SIMPLY FORGOTTEN TO ASK ABOUT PAIN MEDICATION WHILE THE ANIMAL ASSISTED THERAPIST WAS IN THE ROOM. CL IN REACH, SRX2. NO COMPLAINTS/CONCERNS/QUESTIONS/COMMENTS.
--- NOTE | 2019-01-16 19:39 | NUR ---
BED UPRIGHT IN BED UPON ENTERING, INFANT IN LAP. DENIES ANY NEEDS AT THIS TIME. BED IN LOWEST POSITION, BED RAILS X2, CALL LIGHT WITHIN REACH. WILL CONTINUE TO MONITOR.
--- NOTE | 2019-01-16 19:55 | NUR ---
PT ANTIBIOTICS FINISHED INFUSING. FLUSHED PT IV, FLUSHES PROPERLY, SALINE LOCKED, SWAB CAP PLACED. PT DENIES ANY NEEDS AT THIS TIME. WILL CONTINUE TO MONITOR.
[2019-01-16 20:00] VITALS: BP 145/85
--- NOTE | 2019-01-16 21:29 | NUR ---
ADMINISTERED PT MEDICATION AT THIS TIME. NO TROUBLE SWALLOWING. PT INQUIRED ABOUT WHEN SHE LAST RECIEVED NORCO, INFORMED HER IT WAS AT 1654. BABY IN BED WITH MOTHER, FAMILY AT BEDSIDE. DENIES OTHER NEEDS AT THIS TIME. BED IN LOWEST POSITION, BED RAILS X2, CALL LIGHT WITHIN REACH. WILL CONTINUE TO MONITOR.
[2019-01-17] VITALS: BP 148/95
--- NOTE | 2019-01-17 00:15 | NUR ---
PT RESTING LATERAL IN BED, BABY IN BED WIHT PATIENT. PT DENIES ANY NEEDS AT THIS TIME. NO S/S OF DISTRESS. BED IN LOWEST POSITION, BED RAILS X1, CALL LIGHT WITHIN REACH. WILL CONTINUE TO MONITOR.
--- NOTE | 2019-01-17 00:48 | NUR ---
I have reviewed this patient and I concur with the Shift Assessment completed by the Licensed Practical Nurse today this shift.
--- NOTE | 2019-01-17 02:47 | NUR ---
FLUSHED PT IV, ADMINISTERED LASIX, FLUSHED IV AND HUNG ZOSYN. PT TOLERATED PROCEDURE WELL. DENIES OTHER NEEDS AT THIS TIME. BED IN LOWEST POSITION, BED RAILS X1, CALL LIGHT WITH IN REACH. WILL CONTINUE TO MONITOR.
[2019-01-17 04:00] VITALS: BP 124/68
[2019-01-17 05:12] LABS: BASOPHILS 0 % (0-2); EOSINOPHILS 0 % (0-7); HEMATOCRIT 24.9 % (36.0-48.0); HEMOGLOBIN 8.2 g/dL (12-16); IMMATURE GRANULOCYTES 1.8 % (0-5); LYMPHOCYTES 14.3 % (15-50); MCH 28.1 pg (26.0-34.0); MCHC 32.9 g/dL (31.0-37.0); MCV 85.3 fL (80.0-100.0); MEAN PLATELET VOLUME 10.5 fL (7.4-10.4); MONOCYTES 11.3 % (2-11); NEUTROPHILS 72.6 % (40-80); PLATELET COUNT 252 10x3/uL (130-400); RBC 2.92 10x6/uL (4.00-5.40); RDW 14.3 % (11.5-14.5); WBC 9.2 10x3/uL (4.8-10.8)
[2019-01-17 05:30] LABS: CARBON DIOXIDE 27.8 mmol/L (21.0-32.0); CHLORIDE - SERUM 105 mmol/L (98-107); CREATININE - SERUM 0.7 mg/dL (0.6-1.3); SODIUM 143 mmol/L (136-145); eGFR NON AFRICAN AMERICAN > 90 mL/min (90-120)
[2019-01-17 05:34] LABS: CALC OSMOLALITY 285 mosm/kg (275-300); GLUCOSE 95 mg/dL (74-106); UREA NITROGEN 15 mg/dL (7-18)
[2019-01-17 05:36] LABS: POTASSIUM - SERUM 2.8 mmol/L (3.5-5.1)
--- NOTE | 2019-01-17 05:54 | NUR ---
PT RESTING SUPINE IN BED UPON ENTERING. 20 MEQ OF POTASSIUM GIVEN AT THIS TIME FOR CRITICAL VALUE OF 2.8. PROTOCOL IS 20 MEQ PO Q2H X3, RECHECK LABS IN 4 HOURS, WHICH IS AT 0935 ON JANUARY 17, 2019. NO TROUBLE SWALLOWNIG MEDICATION. DENIES OTHER NEEDS AT THIS TIME. BABY IN BED WITH PT, FAMILY AT BEDSIDE. BED IN LOWEST POSITION, BED RAILS X1, CALL LIGHT WITHIN REACH. WILL CONTINUE TO MONITOR.
[2019-01-17 08:13] VITALS: BP 139/91
--- NOTE | 2019-01-17 09:24 | NUR ---
DECLINED OFFER OF SCDS. STATES SHE IS GETTING UP TO BATHROOM OFTEN AND IS PROBLEMATIC FOR HER.
[2019-01-17 13:30] LABS: APPEARANCE HAZY (CLEAR); BILIRUBIN NEGATIVE (NEGATIVE); COLOR YELLOW (YELLOW); GLUCOSE NEGATIVE (NEGATIVE); KETONE NEGATIVE (NEGATIVE); NITRITE NEGATIVE (NEGATIVE); PROTEIN NEGATIVE (NEGATIVE); SPECIFIC GRAVITY 1.015 (1.005-1.020); UROBILINOGEN NORMAL (NORMAL)
[2019-01-17 13:33] LABS: BACTERIA MODERATE /hpf (NONE SEEN); EPITHELIAL CELLS 0-5 /hpf (0-5); MUCUS <1+ /lpf (NONE SEEN); WHITE CELLS - URINE 0-5 /hpf (0-5)
--- NOTE | 2019-01-17 14:14 | NUR ---
I have reviewed this patient and I concur with the Shift Assessment completed by the Licensed Practical Nurse today this shift.
[2019-01-17 16:05] VITALS: BP 147/97
--- NOTE | 2019-01-17 19:24 | NUR ---
PT RESTING SUPINE IN BED UPON ENTERING. PT IS ALERT AND ORIENTED X4. FAMILY AT BEDISDE HOLDING BABY. DENIES ANY NEEDS AT THIS TIME. BED IN LOWEST POSITION, BED RAILS X2, CALL LIGHT WITHIN REACH. WILL CONTINUE TO MONITOR.
[2019-01-17 20:00] VITALS: BP 144/95
--- NOTE | 2019-01-17 22:01 | NUR ---
PT RESTING SUPINE IN BED UPON ENTERING, BABY RESTING IN BED WITH PT. ADMINISTERED EVENING MEDICATION AT THIS TIME, NO TROUBLE SWALLOWING. ALSO ADMINISTERED 20 MEQ OF KDUR PER PROTOCOL FOR POTASSIUM OF 2.8. PT REQUESTED MESH PANTIES, PROVIDED PROMPTLY. DENIES OTHER NEEDS AT THIS TIME. FAMILY AT BEDSIDE. BED IN LOWEST POSITION, BED RAILS X2, CALL LIGHT WITHIN REACH. WILL CONTINUE TO MONITOR.
--- NOTE | 2019-01-17 23:02 | NUR ---
ADMINISTERED DOSE 3/3 OF PROTOCOL 20 MEW KDUR FOR POTASSIUM OF 2.8. PT HAD NO TROUBLE SWALLOWING. COMPLAINT OF HOT ROOM, PT ALREADY HAVE AIR CONDITION TURNED DOWN AND HAS PERSONAL UNIT FAN IN ROOM. PT DIDN'T REQUEST ANY ADDITIONAL INTERVENTIONS. BABY IN BED WITH PT, FAMILY AT BEDSIDE. BED IN LOWEST POSITION, BED RAILS X2, CALL LIGHT WITHIN REACH. WILL CONTINUE TO MONITOR.
--- NOTE | 2019-01-17 23:30 | NUR ---
PT RESTING IN BED WITH BABY IN BED UPON ENTERING. ASSESSED PT AT THIS TIME. NO COMPLAINT FROM PT. INCISION IS CLEAN, DRY, INTACT AND IS NOT CAUSING PT A LOT OF PAIN. DENIES ANY NEEDS AT THIS TIME. BED IN LOWEST POSITION, BED RAILS X2, CALL LIGHT WITHIN REACH. WILL CONTINUE TO MONITOR.
[2019-01-18] VITALS (8 sets, daily range): BP systolic 133–155; BP diastolic 76–109
--- NOTE | 2019-01-18 01:33 | NUR ---
PT HIT CL, ANSWERED PROMPTLY. PT COMPLAINT OF NOT BEING ABLE TO CATCH HER BREATH. LAST O2 READING WAS 95% ON 1 L. PT HAS HAD NO TROUBLE BREATHING THIS SHIFT UNTIL NOW. UPPED O2 TO 2.5 L. PT REQUESTED BREATING TREATMENT. RT CONTACTED AND IS ADMINISTERING BREATING TREATMENT. WILL CONTINUE TO MONITOR AND RECHECK PT AFTER TREATMENT.
--- NOTE | 2019-01-18 01:42 | NUR ---
REASSESSED PT AFTER BREATHING TREATMENT. PT REPORTS FEELING BETTER AND IS HAVING AN EASIER TIME BREATHING. DENIES ANY NEEDS AT THIS TIME. BED IN LOWEST POSITION, BED RAILS X2, CALL LIGHT WITHIN REACH. BABY IN BED WITH PT, FAMILY AT BED SIDE. WILL CONTINUE TO MONITOR.
--- NOTE | 2019-01-18 02:40 | NUR ---
I have reviewed this patient and I concur with the Shift Assessment completed by the Licensed Practical Nurse today this shift.
--- NOTE | 2019-01-18 03:40 | NUR ---
PT RESTING IN BED, BABY IN BED WITH PT. PT DENIES ANY NEEDS AT THIS TIME. SHORTNESS OF BREATH EPISODE HAS PASSED AND PT HAS NO NEEDS AT THIS TIME. BED IN LOWEST POSITION, BED RAILS X2, CALL LIGHT WITHIN REACH. FAMILY AT BEDSIDE. WILL CONTINUE TO MONITOR.
--- NOTE | 2019-01-18 04:17 | NUR ---
PT HIT CL AND HAS COMPLAINT OF SHORTNESS OF BREATH. UPPED O2 TO 3.5L VIA NASAL CANNULA. PT REQUESTED BREATHING TREATMENT. RT NOTIFIED. WILL REASSESS PT AFTER BREATING TREATMENT.
--- NOTE | 2019-01-18 05:03 | NUR ---
PT STATES TO BE FEELING BETTER AFTER BREATHING TREATMENT. STATES THAT IT HELPS TO SIT UP. DENIES ANY NEEDS AT THIS TIME. WILL CONTINUE TO MONITOR.
[2019-01-18 05:31] LABS: BASOPHILS 0.1 % (0-2); EOSINOPHILS 0.1 % (0-7); HEMATOCRIT 29.3 % (36.0-48.0); HEMOGLOBIN 9.5 g/dL (12-16); LYMPHOCYTES 13.4 % (15-50); MCH 27.9 pg (26.0-34.0); MCHC 32.4 g/dL (31.0-37.0); MCV 85.9 fL (80.0-100.0); MEAN PLATELET VOLUME 10.4 fL (7.4-10.4); MONOCYTES 9.4 % (2-11); PLATELET COUNT 284 10x3/uL (130-400); RBC 3.41 10x6/uL (4.00-5.40); RDW 14.5 % (11.5-14.5); WBC 10.5 10x3/uL (4.8-10.8)
[2019-01-18 05:44] LABS: CALC OSMOLALITY 284 mosm/kg (275-300); CALCIUM 8.4 mg/dL (8.5-10.1); CARBON DIOXIDE 26.6 mmol/L (21.0-32.0); CHLORIDE - SERUM 105 mmol/L (98-107); CREATININE - SERUM 0.7 mg/dL (0.6-1.3); GLUCOSE 90 mg/dL (74-106); SODIUM 142 mmol/L (136-145); UREA NITROGEN 18 mg/dL (7-18); eGFR NON AFRICAN AMERICAN > 90 mL/min (90-120)
[2019-01-18 05:51] LABS: POTASSIUM - SERUM 2.9 mmol/L (3.5-5.1)
--- NOTE | 2019-01-18 06:13 | NUR ---
PT RESTING SEMI FOWLERS IN BED, BREATHING IS HEAVY BUT APPEARS UNLABORED. BED IN LOWEST POSITION, BED RAILS X2, CALL LIGHT WITHIN REACH. WILL CONTINUE TO MONITOR.
--- NOTE | 2019-01-18 13:48 | MORECARE ---
CASE MANAGEMENT DISCHARGE SUMMARY PATIENT: CELI WALKER UNIT: [id number] ADM DATE: 01/16/19 AGE: 29 : 88 SEX: F ROOM/BED: D.2112 AUTHOR: UBALDO EVANS PHYSICIAN: REFERRING PHYSICIAN: DICK TORRES MD DATE OF SERVICE: 01/18/19 Discharge Plan Patient Name: CELI WALKER [facility] [facility] 1990 Planned Disposition: Inpatient Rehab Facility Anticipated Discharge Date: Discharge Date: Expected LOS: Initial Reviewer: [email or web address] Initial Review Date: 01/18/2019 Generated: 01/18/19 2:48 pm Patient Name: CELI WALKER Page [phone] at 1348 All edits/amendments must be made on the electronic document DICTATION DATE: 01/18/19 1348 PECAN HULLER: SALLIE 01/18/19 1348 RPT#: [id number] DC DATE: STATUS: ADM IN [facility] [address] [place] [address] END OF REPORT
--- NOTE | 2019-01-18 13:57 | MORECARE ---
CASE MANAGEMENT DISCHARGE SUMMARY PATIENT: CELI WALKER UNIT: [id number] ADM DATE: 01/16/19 AGE: 29 : 86 SEX: F ROOM/BED: D.2112 AUTHOR: UBALDO EVANS PHYSICIAN: REFERRING PHYSICIAN: DICK TORRES MD DATE OF SERVICE: 01/18/19 Discharge Plan Patient Name: CELI WALKER [facility] [facility] 1990 Planned Disposition: Inpatient Rehab Facility Anticipated Discharge Date: Discharge Date: Expected LOS: Initial Reviewer: [email or web address] Initial Review Date: 01/18/2019 Generated: 01/18/19 2:57 pm DCPIA - Discharge Planning Initial Assessment Updated by [email or web address]: Lena Davey on 01/18/19 1:50 pm * Is the patient Alert and Oriented? Yes * How many steps to enter\exit or inside your home? * PCP MELISSA * Pharmacy [facility] * Preadmission Environment Home with Family * ADLs Independent * Equipment None * List name and contact numbers for known caregivers / representatives who currently or will assist patient after discharge: STEFANIA WALKER - SPOUSE - [phone] * Verbal permission to speak to the caregivers and representatives has been obtained from the patient. Yes * Community resources currently utilized None * Additional services required to return to the preadmission environment? No * Can the patient safely return to the preadmission environment? Yes * Has this patient been hospitalized within the prior 30 days at any hospital? Yes Last DP export: 01/18/19 12:48 p Patient Name: CELI WALKER Page [phone] at 1357 All edits/amendments must be made on the electronic document DICTATION DATE: 01/18/19 1357 TEXTILE KNITTER: SALLIE 01/18/19 1357 RPT#: [id number] DC DATE: STATUS: ADM IN [facility] [address] [place] [address] END OF REPORT
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
--- NOTE | 2019-01-18 19:15 | NUR ---
REPORT RECEIVED, WILL CPOC. PATIENT IS MOVING FROM ROOM 2111 TO 2108 DUE TO A/C NOT WORKING. PATIENT IS HOT AND SHORT OF BREATH. ASSISTED PATIENT WITH ROOM TRANSFER, NOTICED LT WRIST IV WAS LEAKING. FLUIDS STOPPED AND IV REMOVED, GAUZE AND TAPE APPLIED. ATTEMPT TO RESITE IV WAS UNSUCCESSFUL, ASKED FOR ANOTHER NURSE TO ATTEMPT. PATIENT IS POST DAY 7, FAMILY AND INFANT AT BEDSIDE. PATIENT IS ON 4L HI FLOW VIA NC. PATIENT DENIES FURTHER NEEDS AT THIS TIME. CL IN REACH, BED LOCKED AND LOWERED. WILL CTM.
--- NOTE | 2019-01-18 19:45 | NUR ---
PATIENT STATES SHE FORGOT TO TELL DAY NURSE THAT HER URINE OUTPUT WAS 2400 FOR THE SHIFT. DOCUMENTED.
--- NOTE | 2019-01-18 20:40 | NUR ---
ICU NURSE CAME TO RESITE IV, IV STARTED IN RT WRIST X1 ATTEMPT. RESTARTED FLUIDS NS@10ML/HR. THEN HUNG FERRLECIT IN SODIUM CL PER ORDERS. PATIENT DENIES FURTHER NEEDS AT THIS TIME. CL IN REACH, BED LOCKED AND LOWERED. WILL CTM.
--- NOTE | 2019-01-18 22:27 | NUR ---
CHANGED SUPPLEMENTAL O2 DEVICE TO HFNC 7L PER DECREASED SPO2 CURRENTLY 92
--- NOTE | 2019-01-18 22:38 | NUR ---
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 A/C IS STILL NOW WORKING PROPERLY, EVEN THOUGH SHE HAS SWITCHED ROOMS, WHICH ISN'T HELPING HER BREATHING.
--- NOTE | 2019-01-18 22:52 | NUR ---
REPORT REC'D, PT ARRIVED VIA BED. CVICU MONITORING ATTACHED TO PT. PT AOX4, SOB, TACHYPNEIC, RR 40-50. LUNG SOUNDS CLEAR THROUGHOUT UPPER LOBES, NO LUNG SOUNDS HEARD THROUGHOUT LOWER LOBES. HOB @ 45 DEGREES. 7L O2 VIA HIGH FLOW NC, SPO2 95.HR 118, BP 145/100. PERIPHERAL PULSES PRESENT. BOWEL SOUNDS ACTIVE IN ALL QUADRANTS. ABDOMINAL INCISION FROM PRESENT, 7 DAYS PP. JOSELO PAD CLEAN AND DRY. HEAVY DUTY DIESEL MECHANIC NOTIFIED, STAT ABG ORDERED, STAT LABS ORDERED. ORDERS TO CONSULT OBGYN IN AM.
[2019-01-19] VITALS (20 sets, daily range): BP systolic 124–147; BP diastolic 75–100
[2019-01-19 00:02] LABS: MAGNESIUM - SERUM 1.9 mg/dL (1.8-2.4); POTASSIUM - SERUM 3.7 mmol/L (3.5-5.1)
--- NOTE | 2019-01-19 02:00 | NUR ---
UP TO BEDSIDE COMMODE. SOB, TACHYPNEIC RR 38. HR 141. PT VOIDED 800 ML CLEAR YELLOW URINE. GENERALIZED WEAKNESS PRESENT. PARTIAL LINEN CHANGE PROVIDED. CALL LIGHT AND BEDSIDE TABLE WITHIN PT REACH.
--- NOTE | 2019-01-19 02:40 | NUR ---
UP TO BEDSIDE COMMODE, DYSPNEA PRESENT, RR 40. HR 140S. GENERALIZED WEAKNESS PRESENT. 600 ML CLEAR PALE URINE VOIDED.
--- NOTE | 2019-01-19 03:00 | NUR ---
PT NOT TOLERATING AMBULATING TO BEDSIDE COMMODE WELL. HR AND RR INCREASES. PT REQUESTS BROWN PLACEMENT DUE TO ACTIVITY INTOLERANCE AND FREQUENT VOIDING FROM DIURETIC ADMINISTRATION. ORDERS FOR STRICT I/O. BROWN CATH PLACED USING STERILE TECHNIQUE. IMMEDIATE RETURN OF 800MLS CLEAR, YELLOW URINE.
[2019-01-19 04:50] LABS: BASOPHILS 0.1 % (0-2); EOSINOPHILS 0.1 % (0-7); HEMATOCRIT 32.6 % (36.0-48.0); HEMOGLOBIN 10.5 g/dL (12-16); IMMATURE GRANULOCYTES 1.8 % (0-5); LYMPHOCYTES 11.5 % (15-50); MCH 27.7 pg (26.0-34.0); MCHC 32.2 g/dL (31.0-37.0); MEAN PLATELET VOLUME 10.4 fL (7.4-10.4); MONOCYTES 8.4 % (2-11); NEUTROPHILS 78.1 % (40-80); PLATELET COUNT 323 10x3/uL (130-400); RBC 3.79 10x6/uL (4.00-5.40); RDW 14.4 % (11.5-14.5); WBC 10.6 10x3/uL (4.8-10.8)
[2019-01-19 05:20] LABS: CALC OSMOLALITY 279 mosm/kg (275-300); CALCIUM 8.9 mg/dL (8.5-10.1); CARBON DIOXIDE 26.9 mmol/L (21.0-32.0); CHLORIDE - SERUM 103 mmol/L (98-107); CREATININE - SERUM 0.7 mg/dL (0.6-1.3); GLUCOSE 97 mg/dL (74-106); SODIUM 140 mmol/L (136-145); UREA NITROGEN 15 mg/dL (7-18); eGFR NON AFRICAN AMERICAN > 90 mL/min (90-120)
[2019-01-19 05:57] LABS: POTASSIUM - SERUM 3.1 mmol/L (3.5-5.1)
--- NOTE | 2019-01-19 06:17 | NUR ---
PT HAD LARGE LOOSE BM, 500ML. PARTIAL LINEN CHANGE AND COMPLETE JOSELO CARE PROVIDED. BROWN CARE PROVIDED.
--- NOTE | 2019-01-19 06:46 | NUR ---
PATRICE CONSULTED PER ORDER. NO NEW ORDERS REC'D AT THIS TIME.
--- NOTE | 2019-01-19 09:17 | NUR ---
0700 PT RECIEVED UP IN BED ALERT AND ORIENTED O2 11L, R WRIST PIV SL, BROWN DRAINING YELLOW URINE 0900 AM MEDS GIVEN, KCL PER PROTOCOL, SPOKE WITH MARINA MACK ORDERS TO SCHEDULE KCL, SPOKE WITH DR BOND WITH ORDERS FOR CPAP, RT NOTIFIED
--- NOTE | 2019-01-19 12:41 | NUR ---
AWAITING BLANCO FROM PHARMACY
--- NOTE | 2019-01-19 16:34 | NUR ---
1100 OFF OF CPAP FOR LUNCH 1300 PLACED BACK TO CPAP 1500 ABLE TO REPOSITION SELF IN BED, REFUSED BATH
--- NOTE | 2019-01-19 18:12 | NUR ---
ATE 75% DINNER, DR IBRAHIM SPOKE WITH PT
--- NOTE | 2019-01-19 19:17 | NUR ---
BEDSIDE SHIFT REPORT GIVEN BY DEPARTING RN. PT LAYING IN BED WATCHING TV. AAOX4. PERRLA. DENIES ANY PAIN. 6L NC. F/C IN PLACE AND DRAINING CONCENTRATED URINE TO GRAVITY. LEFT WRIST AND LEFT HAND PIV PATENT. ASSESSMENT COMPLETE. VSS. SAFETY MEASURES IN PLACE. CBIR.
--- NOTE | 2019-01-19 21:06 | NUR ---
HS MEDS GIVEN. SWALLOWED PO MEDS WITHOUT DIFFICULTY. FAMILY AT BEDSIDE. UPDATE GIVEN. ALL QUESTIONS ANSWERED.
--- NOTE | 2019-01-19 22:28 | NUR ---
OOB TO BR. ONE BM NOTED. CHG BATH GIVEN TO SELF. HAIR SHAMPOOED, ORAL CARE PROVIDED, JOSELO CARE PROVIDED. TOLERATED VERY WELL. LINENS CHANGED. DENIES ANY NEEDS OR PAIN AT THIS TIME. VITAL SIGNS REMAIN UNCHANGED. SAFETY MEASURES IN PLACE. CBIR.
[2019-01-20] VITALS (18 sets, daily range): BP systolic 114–141; BP diastolic 60–90
[2019-01-20 05:14] LABS: BASOPHILS 0.1 % (0-2); EOSINOPHILS 0.5 % (0-7); HEMATOCRIT 31.4 % (36.0-48.0); HEMOGLOBIN 10.1 g/dL (12-16); IMMATURE GRANULOCYTES 2.1 % (0-5); LYMPHOCYTES 19.8 % (15-50); MCH 27.6 pg (26.0-34.0); MCHC 32.2 g/dL (31.0-37.0); MCV 85.8 fL (80.0-100.0); MEAN PLATELET VOLUME 10.2 fL (7.4-10.4); MONOCYTES 8.1 % (2-11); NEUTROPHILS 69.4 % (40-80); PLATELET COUNT 316 10x3/uL (130-400); RBC 3.66 10x6/uL (4.00-5.40); RDW 14.8 % (11.5-14.5); WBC 8.5 10x3/uL (4.8-10.8)
[2019-01-20 05:26] LABS: CALC OSMOLALITY 280 mosm/kg (275-300); CALCIUM 8.6 mg/dL (8.5-10.1); CARBON DIOXIDE 25.4 mmol/L (21.0-32.0); CHLORIDE - SERUM 104 mmol/L (98-107); CREATININE - SERUM 0.7 mg/dL (0.6-1.3); GLUCOSE 94 mg/dL (74-106); POTASSIUM - SERUM 3.9 mmol/L (3.5-5.1); SODIUM 139 mmol/L (136-145); eGFR NON AFRICAN AMERICAN > 90 mL/min (90-120)
[2019-01-20 05:28] LABS: UREA NITROGEN 20 mg/dL (7-18)
--- NOTE | 2019-01-20 10:02 | NUR ---
0700-RECIEVED AWAKE AND ALERT-[facility]--AGREED TO REPORT IF USES >1PAD PER SHIFT FAMILY AT BEDSIDE-
--- NOTE | 2019-01-20 12:00 | NUR ---
DR MONSON NOTIFIED OF CONTINUED CRAMPING TO ABDOMEN--ORDER RECIEVED AND NOTED-PT MADE AWARE OF DR IBRAHIM FEED BACK
--- NOTE | 2019-01-20 12:25 | NUR ---
DR BOND AT BEDSIDE, TITRATED O2 TO 3L NC, PATIENT TO WEAR CPAP AT NIGHT
--- NOTE | 2019-01-20 14:46 | NUR ---
Nutrition Follow-up: Tolerating PO intake. 75% of dinner eaten last PM. Diet: Regular Last BM: 01/20 Wt: 230# Labs reviewed Meds reviewed May consider low Na diet. [place] food preferences. RD following.
--- NOTE | 2019-01-20 15:00 | NUR ---
UP WATCHING TV, NO SIGNS OF DISTRESS, VSS, O2 SAT 97%, O2 TITRATED TO 2L NC, NO OTHER ACUTE CHANGE FROM PREVIOUS ASSESSMENT
--- NOTE | 2019-01-20 16:00 | NUR ---
I AND O'S COMPLETED, RIGHT WRIST PIV DC'D WITH CATH IN TNTACTGAUZE DRESSING APPLIED
--- NOTE | 2019-01-20 17:00 | NUR ---
DINNER TRAY TO BEDSIDE, INDEPENDENT WITH SET UP AND EATING
--- NOTE | 2019-01-20 19:00 | NUR ---
REPORT RECEIVED CARE ASSUEMD ASSESSMENT DONE SEE FLOW SHEET VSS. NO SIGNS OF ACUTE DISTRESS NOTED. BROWN REMOVED PER ICU PROTOCOL. COMPLETE BED BATH GIVEN INDEPENDENTLY. WILL CONTINUE TO MONITOR.
--- NOTE | 2019-01-20 21:00 | NUR ---
MEDS GIVEN PER MAR VSS NO SIGNS OF ACUTE DISTRESS NOTED.
--- NOTE | 2019-01-20 22:57 | NUR ---
WATER PROVIDED PER PT REQUEST. VSS WILL CONITNUE TO MONITOR.
--- NOTE | 2019-01-20 23:00 | NUR ---
2230 PT RA AT THIS TIME SPO2 95%. VSS. 2300 PT SLEEPING NO SIGNS OF ACUTE DISTRESS NOTED WILL CONTINUE TO MONITOR.
--- NOTE | 2019-01-21 01:00 | NUR ---
PT INTERMITTENTLY ON CPAP. ON RA WITHOUT WILL CONTINUE TO MONITOR.
[2019-01-21 03:00] VITALS: BP 109/66
--- NOTE | 2019-01-21 03:00 | NUR ---
PT IN BED RESTING VSS NO SIGNS OF ACUTE DISTRESS NOTED WILL CONTINUE TO MONITOR.
--- NOTE | 2019-01-21 05:01 | NUR ---
IO COLLECTED. DAILY WEIGHT COLLECTED. VSS.
[2019-01-21 05:37] LABS: BASOPHILS 0.2 % (0-2); EOSINOPHILS 0.2 % (0-7); HEMATOCRIT 34.3 % (36.0-48.0); HEMOGLOBIN 11.1 g/dL (12-16); IMMATURE GRANULOCYTES 3.1 % (0-5); LYMPHOCYTES 20.8 % (15-50); MCH 27.8 pg (26.0-34.0); MCHC 32.4 g/dL (31.0-37.0); MEAN PLATELET VOLUME 10.2 fL (7.4-10.4); MONOCYTES 8.3 % (2-11); NEUTROPHILS 67.4 % (40-80); PLATELET COUNT 350 10x3/uL (130-400); RBC 3.99 10x6/uL (4.00-5.40); RDW 14.7 % (11.5-14.5); WBC 8.9 10x3/uL (4.8-10.8)
[2019-01-21 06:01] LABS: CALC OSMOLALITY 278 mosm/kg (275-300); CALCIUM 8.8 mg/dL (8.5-10.1); CARBON DIOXIDE 26.1 mmol/L (21.0-32.0); CHLORIDE - SERUM 103 mmol/L (98-107); CREATININE - SERUM 0.8 mg/dL (0.6-1.3); GLUCOSE 94 mg/dL (74-106); SODIUM 138 mmol/L (136-145); UREA NITROGEN 21 mg/dL (7-18); eGFR NON AFRICAN AMERICAN 89 mL/min (90-120)
[2019-01-21 07:00] VITALS: BP 115/76
[2019-01-21 08:00] VITALS: BP 125/80
[2019-01-21 09:00] VITALS: BP 126/76
--- NOTE | 2019-01-21 09:21 | NUR ---
DR IBRAHIM HERE AT BS.
--- NOTE | 2019-01-21 11:14 | NUR ---
DR LE HERE ON ROUNDS. UPDATE PHARMACY DONE TO PROVIDE DUE TO HER REG PHARMACY WILL CLOSE SOON TODAY. PLAN TO DC TODAY.
[2019-01-21] MEDS ORDERED: Levaquin PO (11:17)
[2019-01-21] MEDS ORDERED: TOPROL XL PO (11:17)
[2019-01-21] MEDS ORDERED: NORVASC5 MG PO (11:17)
[2019-01-21] MEDS ORDERED: LASIX40 MG PO (11:20)
--- NOTE | 2019-01-21 12:27 | NUR ---
DC INSTRUCTIONS AND DC MEDS REVIEWED WITH PT AND HER . BOTH VERB UNDERSTANDING.
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
== END 2019-01-21 12:38 | disposition home or self-care (01) | DRG 776 ==
LOC: D.ER 21:47 → D.M2 01-16 00:53 → D.CVICU 01-16 00:53 → D.M2 01-18 18:34 → D.CVICU 01-18 23:09
PROVIDERS: Family Medicine; Internal Medicine Nephrology; ADMIT Family Medicine; ATTEND Family Medicine
PROC: 5A09357 Assistance with Respiratory Ventilation, Less than 24 Consecutive Hours, Continuous Positive Airway Pressure (ICD-10-PCS; principal; 2019-01-19)
DX: O90.89 Other complications of the puerperium, not elsewhere classified (principal); J96.01 Acute respiratory failure with hypoxia; I50.31 Acute diastolic (congestive) heart failure; J18.9 Pneumonia, unspecified organism; O99.53 Diseases of the respiratory system complicating the puerperium; O14.95 Unspecified pre-eclampsia, complicating the puerperium; E87.6 Hypokalemia; I11.0 Hypertensive heart disease with heart failure; I16.0 Hypertensive urgency; O86.20 Urinary tract infection following delivery, unspecified; O99.345 Other mental disorders complicating the puerperium; Z68.35 Body mass index [BMI] 35.0-35.9, adult; O99.215 Obesity complicating the puerperium; F53.0 Postpartum depression; F31.9 Bipolar disorder, unspecified

== ENCOUNTER → 2019-03-10 08:24 | Outpatient (CLI) | payer BC ==
[2019-01-16 13:08] VITALS: BMI 34.1
[~2019-03-10 08:24] MED LIST changes: +LASIX40 MG PO; +Levaquin PO; +NORVASC5 MG PO; +TOPROL XL PO
== END | disposition home or self-care (01) ==
LOC: D.ECHO 08:24
PROVIDERS: ATTEND Internal Medicine Pulmonary Disease
DX: R06.09 Other forms of dyspnea (principal)

== ENCOUNTER → 2019-03-21 13:40 | Outpatient (CLI) | payer BC ==
[2019-01-16 13:08] VITALS: BMI 34.1
--- NOTE | 2019-03-23 13:56 | ST ---
PATIENT:CELI WALKER MEDICAL RECORD: [id number] SEX: F LOCATION:[facility] ORDER #: ADMISSION DATE: 03/21/19 AGE OF PATIENT: 29 REFERRING PHYSICIAN: INTERPRETING PHYSICIAN: CHUNG BROWN MD DATE OF SERVICE: 03/21/2019 PROCEDURE: Treadmill stress test. Baseline ECG is normal. Exercised for 7 minutes 12 seconds on Tyron protocol, maximum heart rate of 188 beats per minute, greater than 85% max predicted. No ECG changes of ischemia. No symptoms of ischemia. No blood pressure response to exercise. No arrhythmias noted. Poor exercise tolerance for age. TRANSINT:[id number] Voice Confirmation ID: [id number] DOCUMENT ID: [id number] CHUNG BROWN MD at 1356 CC: [id number] DICTATION DATE: 03/22/19 1300 REPAIRER RESISTANCE WELDING MACHINES: 03/22/19 1312 DEP CLI 03/21/[address] [address]
== END | disposition home or self-care (01) ==
LOC: D.HCCARDIO 13:40
PROVIDERS: ATTEND Internal Medicine Interventional Cardiology
DX: R07.9 Chest pain, unspecified (principal)

== ENCOUNTER → 2019-03-28 07:21 | Outpatient (CLI) | payer BC ==
[2019-01-16 13:08] VITALS: BMI 34.1
== END | disposition home or self-care (01) ==
LOC: D.RT 07:21
PROVIDERS: ATTEND Internal Medicine Pulmonary Disease
DX: R06.09 Other forms of dyspnea (principal)